=== PATIENT | male | born 1995 | race Two or more races ===

== ENCOUNTER 2016-09-25 00:48 | Emergency (ER) | payer OTHER ==
[~2016-09-25] VITALS: Ht 177.8 cm; Wt 88.9 kg
[2016-09-25 05:26] VITALS: BP 132/60
[2016-09-25] MEDS ORDERED: HYDROcodone-ACET 10/325MG TAB PO ONE (05:30)
== END 2016-09-25 06:38 | disposition home or self-care (01) ==
LOC: ER 00:48
DX: S93.402A Sprain of unspecified ligament of left ankle, initial encounter (principal); F12.10 Cannabis abuse, uncomplicated; W01.0XXA Fall on same level from slipping, tripping and stumbling without subsequent striking against object, initial encounter; Y93.89 Activity, other specified; Y99.8 Other external cause status; Y92.89 Other specified places as the place of occurrence of the external cause
CPT/HCPCS: 29515; 73610